=== PATIENT | female | born 1980 ===

== ENCOUNTER 2023-09-05 13:19 | Emergency (ER) | payer BC ==
[2023-09-05] MEDS: Sodium Chloride 0.9% 10 ML Syringe FLUSH PRN (14:09)
[2023-09-05] MEDS: Ondansetron 4 MG/2 ML SDV IVPUSH ONE (14:10)
[2023-09-05 14:21] LABS: BASOPHILS PERCENT AUTO 0.3 % (0.0-1.0); EOSINOPHILS PERCENT AUTO 0.1 % (0.0-6.0); HEMATOCRIT 43.2 % (37.0-47.0); HEMOGLOBIN 15.1 gm/dl (12.0-16.0); IMMATURE GRAN ABSOLUTE AUTO 0.07 K/mm3 (0.00-0.05); IMMATURE GRAN PERCENT AUTO 0.5 % (0.0-0.4); LYMPHOCYTES ABSOLUTE AUTO 1.6 K/mm3 (1.0-4.8); LYMPHOCYTES PERCENT AUTO 10.6 % (24.0-44.0); MEAN CORPUSCULAR HEMOGLOBIN 31.2 pg (28.0-32.0); MEAN CORPUSCULAR VOLUME 89.3 fl (83.0-99.0); MONOCYTES ABSOLUTE AUTO 1.3 K/mm3 (0.0-0.8); MONOCYTES PERCENT AUTO 8.3 % (0.0-8.0); NEUTROPHILS ABSOLUTE AUTO 12.2 K/mm3 (1.8-7.7); NEUTROPHILS PERCENT AUTO 80.2 % (41.0-71.0); PLATELET COUNT,PLT 248 K/mm3 (150-400); RED BLOOD CELL COUNT 4.84 M/mm3 (4.10-5.30); WHITE BLOOD CELL COUNT,WBC 15.23 K/mm3 (3.9-11.3)
[2023-09-05] MEDS: Ketorolac 30 MG/ML SDV IVPUSH ONE (14:24)
[2023-09-05] MEDS: Sodium Chloride 0.9% 1,000 ML IV ONE (14:24)
[2023-09-05 14:55] LABS: A/G RATIO 0.8 (1-2); ALBUMIN 3.2 g/dl (3.4-5.0); ANION GAP 12.7 (5-15); BILIRUBIN TOTAL 0.5 mg/dL (0.2-1.0); BUN/CREATININE RATIO 12.2 (14-18); CREATININE 0.9 mg/dL (0.55-1.02); EST CRCL DRUG DOSING (CG) 63.75 mL/min; MAGNESIUM 1.6 mg/dL (1.8-2.4); POTASSIUM,K 3.7 mEq/L (3.5-5.1); PROTEIN TOTAL,TP 7.4 g/dl (6.4-8.2)
[2023-09-05 15:13] LABS: CORONAVIRUS COVID-19 NAA POSITIVE (NEGATIVE); INFLUENZA A NAA NEGATIVE (NEGATIVE); RESPIRATORY SYNCYTIAL VIR NAA NEGATIVE (NEGATIVE)
[2023-09-05] MEDS: Iopamidol 612 MG/ML 100 ML Bottle IVPUSH ONE (15:23)
[2023-09-05] MEDS: Sodium Chloride 0.9% 10 ML Syringe FLUSH ONE (15:23)
[2023-09-05 15:30] LABS: APPEARANCE,URINE CLEAR (Clear); BILIRUBIN,URINE 1+ (Negative); COLOR,URINE DARK YELLOW (Yellow); GLUCOSE,URINE NEGATIVE (Negative); KETONES,URINE 1+ (Negative); LEUKOCYTE ESTERASE,URINE NEGATIVE (Negative); NITRITE,URINE NEGATIVE (Negative); OCCULT BLOOD,URINE TRACE-INTACT (Negative); PH,URINE 5.5 (5.0-8.0); PROTEIN,URINE 2+ (Negative); UROBILINOGEN,URINE 0.2 (0.2-1.0)
[2023-09-05 16:06] LABS: BACTERIA,URINE FEW /hpf (FEW); MUCUS,URINE FEW /hpf (FEW); RBC,URINE 0-5 /hpf (0-5); WBC,URINE 0-5 /hpf (0-5)
[2023-09-05] MEDS: HYDROmorphone 0.5 MG/0.5 ML Syringe IVPUSH ONE (16:30)
[2023-09-05] MEDS: Metoclopramide 10 MG/2 ML SDV IVPUSH ONE (17:26)
[2023-09-05] MEDS: diphenhydrAMINE 50 MG/ML SDV IVPUSH ONE (17:40)
== END 2023-09-05 18:54 | disposition home or self-care (01) ==
LOC: JD.ED 13:19
DX: U07.1 COVID-19 (principal); R19.7 Diarrhea, unspecified; M26.651 Arthropathy of right temporomandibular joint; Z86.16 Personal history of COVID-19; Z79.899 Other long term (current) drug therapy
CPT/HCPCS: 0241U; 36415; 74177; 80053; 81001; 83690; 83735; 84703; 85025; 87045; 87046; 87493; 87899; 96361; 96374; 96375; 99284; J1200; J1885; J2405; J2765; J3490; J7030; Q9967